=== PATIENT | male | born 1970 | race Caucasian/White ===

== ENCOUNTER 2016-12-27 11:06 | Day surgery (SDC) | payer BC ==
[~2016-12-27 11:06] MED LIST: RINGER'S SOLUTION,LACTATED 1,000 ML IV PRN
[2016-12-27] MEDS: RINGER'S SOLUTION,LACTATED 1,000 ML IV ONE (11:20)
[2016-12-27 13:36] VITALS: BP 120/92
--- NOTE | 2016-12-27 17:11 | OR ---
Operative Report - Dictated Report Narrative: Operative Report Date of operation: 12/27/2016 Preoperative diagnosis: GERD symptoms. Diarrhea. Abnormal CAT scan. Postoperative diagnosis: Esophagitis, hiatal hernia, gastropathy (pathology and CLOtest pending). Normal colonoscopy (pathology pending) Operation: EGD with biopsies. Colonoscopy with random biopsies. Surgeon: Dr Ibarra Anesthesia: JUANCHO VALENCIA CRNA Indications for procedure: The patient is a 46-year-old male referred by Dr. Myles. The patient has had recent diarrhea and GERD symptoms. A CT scan of the abdomen and pelvis suggested possible colon thickening. Stool studies for culture and O&P have been negative. There is no family history of colon cancer Findings: Irregular GE junction with inflammation. Gastropathy. Grossly normal colonoscopy to the cecum (somewhat capacious colon with thickened folds until insufflated) Narrative of procedure: The patient was identified preoperatively, and prior to the administration of anesthetic a multidisciplinary timeout was observed EGD: With the patient in the recumbent position, a bite-block was placed, intravenous sedation was administered, and the patient's eyes covered with a towel. The flexible fiberoptic gastroscope was advanced into the posterior pharynx which appeared normal. The supraglottic larynx appeared normal. The cords appeared normal, moved well, and opposed in the midline. The scope was advanced under direct vision into the proximal esophagus which appeared normal. The esophagus appeared freely distensible with normal mucosa. The esophageal mucosa appeared normal down to the gastroesophageal junction which was irregular with mild to moderate inflammation. The GE junction appeared normally distensible. The scope was advanced through a small hiatal hernia into the stomach which was insufflated with air. There was lopes gastric erythema but no ivette ulcers or neoplastic lesions were appreciated including a retroflexed view of the gastric fundus. The scope was redirected toward the pylorus. The pylorus appeared patent. The scope was advanced into the duodenal bulb which appeared normal. The scope was advanced further to the horizontal portion of the duodenum which appeared normal, specifically the villous architecture appeared well preserved and clear bile was present. A biopsy of technology sales representative duodenal mucosa was obtained. The biopsy site was seen to be hemostatic. The scope was slowly withdrawn through the duodenal bulb with confirmation that no active ulcer was present. The scope was withdrawn into the stomach and technology sales representative biopsies of gastric mucosa obtained for CLOtest and pathology. The biopsy sites were seen to be hemostatic. The insufflated air was removed from the stomach, the scope withdrawn to just above the GE junction which was biopsied. The biopsy sites were seen to be hemostatic. The scope was withdrawn from the patient, and this portion of the procedure terminated. COLONOSCOPY: The patient was then placed in the left lateral position, and the perineum was inspected. There was no evidence of pilonidal disease or skin breakdown. The external appearance of the anus was normal. Sphincter tone was good. The flexible fiberoptic colonoscope was inserted into the rectum which was insufflated with air. The rectal mucosa and submucosal vascular pattern appeared normal, the prep was seen to be complete. The scope was advanced through the sigmoid colon, up the descending colon, and around the splenic flexure where the triangular haustral architecture of the transverse colon was seen. The scope was advanced across the transverse colon, around the hepatic flexure to the cecum, where the confluence of tenia and the ileocecal valve were identified. The mucosa at this level appeared normal. The scope was then slowly withdrawn in a circular fashion so that all aspects of colonic mucosa were inspected. The colon was very capacious in character with prominent mucosal folds when collapsed. These however effaced normally upon insufflation. The haustral architecture appeared well preserved throughout with no evidence of external compression. The mucosa and submucosal vascular pattern appeared normal, specifically there was no gross evidence to suggest colitis or inflammatory bowel disease and no AV malformations were seen. No ivette diverticular openings were demonstrated. No polyps were encountered. Multiple random biopsies of the colon were obtained. The biopsy sites were seen to be hemostatic. The scope was gradually withdrawn to the level of the rectum. As much insufflated air as possible was removed. The scope was withdrawn from the patient and the procedure terminated. The patient tolerated the anesthetic and procedure well without complication and was transferred back to the ambulatory surgery area awake and in stable condition. The patient remained stable throughout a period of postoperative observation. He denied abdominal discomfort, was able to tolerate by mouth intake, and was up without assistance. I shared the operative findings with the patient and his and he was given copies of the photographs which appear in the medical record. He was discharged home with instructions not to engage in hazardous activity today, but may resume normal activity tomorrow, and advance diet as tolerated. He is to continue those medications as listed in the history and physical exam. I made arrangements to contact him with the biopsy reports and will make additional recommendations for treatment and follow-up based upon those results. Reviewed and electronically signed
[2016-12-29] MEDS ORDERED: RINGER'S SOLUTION,LACTATED 1,000 ML IV PRN (11:40)
== END 2016-12-27 11:07 | disposition home or self-care (01) ==
LOC: AMB 11:06
PROVIDERS: ATTEND Surgery
PROC: 0DB48ZX Excision of Esophagogastric Junction, Via Natural or Artificial Opening Endoscopic, Diagnostic (ICD-10-PCS; 2016-12-27)
PROC: 0DBE8ZX Excision of Large Intestine, Via Natural or Artificial Opening Endoscopic, Diagnostic (ICD-10-PCS; 2016-12-27)
PROC: 0DB98ZX Excision of Duodenum, Via Natural or Artificial Opening Endoscopic, Diagnostic (ICD-10-PCS; principal; 2016-12-27 11:40)
PROC: 0DB68ZX Excision of Stomach, Via Natural or Artificial Opening Endoscopic, Diagnostic (ICD-10-PCS; 2016-12-27 11:40)
DX: Z12.11 Encounter for screening for malignant neoplasm of colon (principal); K21.0 Gastro-esophageal reflux disease with esophagitis; K44.9 Diaphragmatic hernia without obstruction or gangrene; K29.60 Other gastritis without bleeding; R19.7 Diarrhea, unspecified; F17.200 Nicotine dependence, unspecified, uncomplicated; Z68.28 Body mass index [BMI] 28.0-28.9, adult